=== PATIENT | male | born 1975 | race Caucasian/White ===

== ENCOUNTER 2017-05-12 00:40 | Emergency (ER) | payer BC ==
[2017-05-12 00:55] VITALS: RESP 18; O2SAT 97
[2017-05-12] MEDS: SODIUM CHLORIDE 0.9% FLUSH 10 ML SOL IV PRN ×3 (00:55→02:41)
[2017-05-12] MEDS ORDERED: HYDROMORPHONE 1 MG/ML SYRINGE IV PRN (01:18)
[2017-05-12] MEDS ORDERED: SODIUM CHLORIDE 0.9% 1000ML 1,000 ML IV ONE (01:19)
[2017-05-12] MEDS ORDERED: HYDROMORPHONE HCL 2 MG/ML SOL ONE ×2 (01:28→02:42)
[2017-05-12 01:33] LABS: BASOPHILS % (AUTO) 1 % (0-3); EOSINOPHILS % (AUTO) 0 % (0-9); HEMATOCRIT 40 % (39-53); MEAN CORPUSCULAR HGB CONC 35.2 gm/dl (32.0-36.0); MEAN CORPUSCULAR VOLUME 84 fL (80-100); MONOCYTES % (AUTO) 4.4 % (0-12); NEUTROPHILS % (AUTO) 89.9 % (37-80)
[2017-05-12 01:50] LABS: ALBUMIN 3.9 gm/dl (3.4-5.0); CALCIUM 8.7 mg/dl (8.5-10.1); POTASSIUM 3.6 mMol/L (3.5-5.1)
[2017-05-12] MEDS ORDERED: HYDROMORPHONE HCL 2 MG/ML SOL IV ONE (02:38)
[2017-05-12] MEDS ORDERED: ERTAPENEM SODIUM 1 GM PDS ONE (03:02)
[2017-05-12 03:26] VITALS: BP 134/84; PULSE 82; TEMP 99.2
[2017-05-12] MEDS ORDERED: HYDROMORPHONE 1 MG/ML SYRINGE IV ONE (03:37)
[2017-05-12] MEDS ORDERED: ERTAPENEM SODIUM 1 GM PDS 1 GM in SODIUM CHLORIDE 0.9% 50 ML 50 ML IV SCH (09:00)
== END 2017-05-12 03:56 | disposition short-term general hospital (02) ==
LOC: ED 00:40
DX: K35.3 Acute appendicitis with localized peritonitis (principal)
CPT/HCPCS: 36415; 74177; 80053; 85025; 96365; 96366; 96374; 99285; J1170; J1335; Q9967